=== PATIENT | female | born 1960 | race Caucasian/White ===

== ENCOUNTER → 2016-06-11 | Outpatient (CLI) | payer BC ==
[~2016-06-11] MED LIST: ASPI325T45 PO; OXYC1TAB3 PO
[2016-06-11 15:21] LABS: BLOOD UREA NITROGEN 16 mg/dl (7-18); BUN/CREATININE RATIO 14.5 (10-20)
== END | disposition home or self-care (01) ==
LOC: C.LAB 13:36
PROVIDERS: ATTEND Urology
DX: N20.0 Calculus of kidney (principal); N28.9 Disorder of kidney and ureter, unspecified

== ENCOUNTER → 2016-06-12 | Outpatient (CLI) | payer BC ==
--- NOTE | 2016-06-12 17:43 | DIAGNOSTIC IMAGING REPORT ---
KUB CLINICAL HISTORY: N20.0 [id number] Acute renal insufficiency COMPARISON STUDY: No previous studies for comparison. FINDINGS: The renal shadows are partially obscured by overlying bowel gas and fecal material. No definite renal calculi are visualized. There are some small opacities project over each renal shadow, but these likely reflect overlying enteric contents. Small calculi could appear similar. There are few nonspecific pelvic basin calcifications, likely representing phleboliths given the absence of current pain. There is no pathologic bowel dilatation. IMPRESSION: No definite renal calculi identified although the kidneys are largely obscured by overlying enteric contents Electronically signed by: Marvin Claire M.D. 06/12/2016 5:41 PM Dictated Date/Time: 06/12/2016 5:39 PM
== END | disposition home or self-care (01) ==
LOC: C.RAD 17:05
PROVIDERS: ATTEND Urology
DX: N20.0 Calculus of kidney (principal); N28.9 Disorder of kidney and ureter, unspecified

== ENCOUNTER → 2017-06-02 | Outpatient (CLI) | payer OTHER ==
[~2017-06-02] MED LIST changes: +ASPECOTC PO; -ASPI325T45 PO; -OXYC1TAB3 PO
--- NOTE | 2017-06-03 14:57 | MAMMOGRAPHY REPORT ---
BILATERAL DIGITAL SCREENING MAMMOGRAM TOMOSYNTHESIS WITH CAD: 06/02/2017 CLINICAL HISTORY: Routine screening. TECHNIQUE: Breast tomosynthesis in addition to standard 2D mammography was performed. Current study was also evaluated with a Computer Aided Detection (CAD) system. COMPARISON: Comparison is made to exams dated: 05/30/2016 mammogram, 05/23/2015 mammogram, 4 mammogram, 08/18/2012 mammogram, 08/13/2011 mammogram, and 07/31/2010 mammogram - [facility]. BREAST COMPOSITION: The tissue of both breasts is heterogeneously dense, which may obscure small mas ses. FINDINGS: There are stable asymmetries in the breasts. No new suspicious mass, architectural distort ion or cluster of microcalcifications is seen. IMPRESSION: ACR BI-RADS CATEGORY 1: NEGATIVE There is no mammographic evidence of malignancy. A 1 year screening mammogram is recommended. The pa tient will receive written notification of the results. Approximately 10% of breast cancers are not detected with mammography. A negative mammographic report should not delay biopsy if a clinically suggestive mass is present. Mi Rosa M.D. ay/:06/02/2017 16:44:50 Customer Program Specialist: Herbie MARRUFO(R)(M), [facility] letter sent: Normal /2 BI-RADS Code: ACR BI-RADS Category 1: Negative
== END | disposition home or self-care (01) ==
LOC: C.MAMM 13:12
PROVIDERS: ATTEND Family Medicine
DX: Z12.31 Encounter for screening mammogram for malignant neoplasm of breast (principal)